=== PATIENT | female | born 1990 ===

== ENCOUNTER 2018-10-02 12:12 | Day surgery (SDC) | payer OTHER ==
[2018-09-29 15:11] VITALS: BMI 21.6
[2018-10-02 13:27] LABS: BASO # 0.1 K/uL (0.0-0.2); BASO % 1.4 % (0.0-2.0); EOS # 0.2 K/uL (0.0-0.7); EOS % 2.5 % (0.0-4.0); HEMOGLOBIN 11.1 g/dL (12.0-16.0); LYMPH # 2.7 K/uL (1.0-4.3); MEAN CELL VOLUME 84.5 fl (81.0-99.0); MEAN CORPUSCULAR HEMOGLOBIN 27.5 pg (27.0-31.0); MEAN CORPUSCULAR HGB CONC 32.6 g/dL (33.0-37.0); MEAN PLATELET VOLUME 8.9 fl (7.2-11.7); MONO # 0.5 K/uL (0.0-0.8); MONO % 7.8 % (0.0-10.0); NEUT # 2.8 K/uL (1.8-7.0); NEUT % 45.3 % (50.0-75.0); NRBC % 0.1 % (0.0-0.0); RBC 4.04 Mil/uL (3.80-5.20); RED CELL DISTRIBUTION WIDTH 14.8 % (11.5-14.5); WHITE BLOOD COUNT 6.3 K/uL (4.8-10.8)
[2018-10-02] MEDS ORDERED: Bupivacaine HCl 0.5% PF (30 ml) Inj ONE (13:34)
[2018-10-02] MEDS ORDERED: Midazolam 2 MG/2 ML VIAL ONE (14:17)
[2018-10-02] MEDS ORDERED: Propofol 10 mg/ml Inj (20 ML) ONE (14:17)
[2018-10-02] MEDS ORDERED: Lidocaine 2% MPF (5 ml) Inj ONE (14:18)
[2018-10-02] MEDS ORDERED: Rocuronium 10 mg/ml (5 ml) ONE ×2 (14:20→15:24)
[2018-10-02] MEDS ORDERED: Lactated Ringer's 1,000 ML IV ONE ×5 (14:20→19:34)
[2018-10-02] MEDS ORDERED: ceFAZolin 1 GM in Sodium Chloride 0.9% 100 ML IVPB ONE (14:28)
[2018-10-02] MEDS ORDERED: Neostigmine 1:1000 (1 mg/ml) Inj ONE (15:51)
[2018-10-02] MEDS ORDERED: Silver Nitrate Topical - Stick TOP ONE (15:59)
[2018-10-02] MEDS ORDERED: Lactated Ringer's 1,000 ML IV PRN (16:33)
[2018-10-02] MEDS ORDERED: Lactated Ringer's 1,000 ML IV SCH ×3 (16:45→17:15)
[2018-10-02] MEDS: HYDROmorphone 0.5 mg/0.5 ml ISec IVP PRN ×2 (16:55→17:12)
[2018-10-02] MEDS ORDERED: CABERGOLINE 0.25 MG PO SCH (17:30)
[2018-10-02 20:29] VITALS: RESP 20
[2018-10-02 22:57] VITALS: BP 110/54; PULSE 88; TEMP 98; O2SAT 94
[2018-10-03] MEDS ORDERED: FEXOFENADINE PO SCH (09:00)
[2018-10-03] MEDS ORDERED: PSEUDOEPHEDRINE PO SCH (09:00)
--- NOTE | 2018-10-05 08:08 | OP ---
PROCEDURE DATE: 10/02/2018 PREOPERATIVE DIAGNOSES: Chronic pelvic pain, fibroid uterus, suspected endometrial cyst. POSTOPERATIVE DIAGNOSES: Endometrial cyst, fibroid uterus, left paratubal cyst. PROCEDURES: Cystoscopy, ureteral stent placement, hysteroscopy, diagnostic robotic-assisted endometrial cyst excision and ablation, paratubal cystectomy. SURGEON: Laz Acosta MD CERAMICS TEST ENGINEER: Nicola Tovar MD ANESTHESIA ADMINISTERED BY: Dr. Nava. TYPE OF ANESTHESIA: General with endotracheal tube. COMPLICATIONS: None. ESTIMATED BLOOD LOSS: 10 mL. FLUID REPLACEMENT: Lactated Ringer's. DRAINS: Cat to gravity. INDICATION FOR PROCEDURE: A 28-year-old with persisted chronic pelvic pain despite medical management. DESCRIPTION OF PROCEDURE: After informed consent was obtained and signed, the patient was brought to the operating room and placed in supine position. Once general anesthesia was successfully induced, the patient was prepped and draped in the usual sterile fashion and placed in lithotomy presentation. After examination under anesthesia, uterine retractor was placed, vaginal retractor was placed posteriorly. The cervix was grasped, and the uterus was examined for position and movement. Once this was completed, using a hysteroscope pre-lubricated that was placed in the side of the urethra opening, and the bladder was then insufflated with normal saline distention media. Once this occurred, full distention was seen. The bladder was evaluated. The ureteral openings were noted where hysteroscope was advanced. At this time, a 5-Urdu ureteral stent was then threaded through the hysteroscope operative canal port. The stent was then threaded through the ureteral opening to about 10 cm of length was achieved. Then, the dye was injected. ICD-9 was injected without any difficulty. The stent was then removed under direct visualization, and the contralateral ureter was identified, and the stent was then re-advanced through the ureter without difficulty. Once achieving 2 cm distance, a dye was then injected into the contralateral . Once this was completed, the hysteroscope was then removed from the bladder. Attention was then turned toward the uterus was then gradually dilated in a systematic fashion. Once this was complete, the cervix was dilated to the diameter to accommodate the hysteroscope. The hysteroscope was placed gentle insufflation of the uterus with no distention media. The cavity was surveyed. It was noted to have a septum in the middle of the uterus. The uterus having two over through the cornua on both sides. It appears to be a large septum . No other masses were seen inside of the uterus. The cystoscope was then removed. At this point in time, the uterine manipulator was then advanced without difficulty and left into place. Attention was then turned to pre-prepped abdominal area which in the umbilical region, a vertical incision was then performed and the cutdown was then created. Once through the fascia, the robotic 8-mm scope was placed without difficulty and confirmed with robotic camera. Once confirmation was complete, the abdominal cavity was then insufflated with CO2. The abdominal cavity was then surveyed again, and pictures were obtained. Endometrial cyst implants were found in multiple spots. So, at this point in time, we decided to enter the other ports. Two more lateral ports and assistance port were then placed inside, so we end up putting 8-mm incisions in the left lateral sites, and 5-mm incision in between. Once this was completed, monopolar oneil as well as the PK was placed along with the accessory port. Once this was completed, we then began to dissect the implants and remove them. Sending multiple specimens to pathology. Please note, the ureterolysis with the implants were also noted, were excised by Dr. Tovar on both sides. Once all specimens were collected, specimens were sent to pathology and the irrigation which was obtained was then removed. The robot was undocked, and trocars were then removed as well. The incisions were closed using 2-0 Prolene umbilical incision, and contralateral ports were then closed using Monocryl suture with the subcuticular stitch and Dermabond glue. Dressings were then applied. Please note, all sponge, needle and equipment count were correct x3. The patient went to recovery room in stable condition. Laz Acosta MD
== END 2018-10-02 22:45 | disposition home or self-care (01) ==
LOC: H.OPSURG 12:12 → H.MEDSURG1 20:12 → H.OPSURG 22:45
PROVIDERS: ATTEND Specialist
DX: N80.0 Endometriosis of uterus (principal); R10.2 Pelvic and perineal pain; D25.9 Leiomyoma of uterus, unspecified; G89.29 Other chronic pain; N83.8 Other noninflammatory disorders of ovary, fallopian tube and broad ligament
CPT/HCPCS: 36415; 52332; 58563; 85025; 86850; 86900; 88305; C1729; J0690; J1170; J1885; J2250; J2405; J2704; J2710; J2765; J3010; J7120